=== PATIENT | female | born 1975 | race Caucasian/White ===

== ENCOUNTER 2017-06-09 06:39 | Emergency (ER) | payer OTHER ==
[~2017-06-09] VITALS: Ht 165.1 cm; Wt 70.3 kg
--- NOTE | 2017-06-09 06:58 | NUR ---
Pt to room c/o itching and swelling to outer right ankle, possible two insect bites. Pt resting in position of comfort for self. Awaiting further eval. Report given to SERGEY Lowe. I relinquish care of pt at this time
--- NOTE | 2017-06-09 07:03 | NUR ---
pt was evaluated by dr Marino.
--- NOTE | 2017-06-09 07:27 | NUR ---
pt was d/c to home. d/c instructions given to the pt.
[2017-06-09 07:28] VITALS: BP 128/78
== END 2017-06-09 07:29 | disposition home or self-care (01) ==
LOC: ER 06:41
DX: T63.301A Toxic effect of unspecified spider venom, accidental (unintentional), initial encounter (principal); L29.8 Other pruritus; F10.20 Alcohol dependence, uncomplicated; Y92.89 Other specified places as the place of occurrence of the external cause
CPT/HCPCS: A4663